=== PATIENT | female | born 1990 | race Asian ===

== ENCOUNTER 2017-09-02 21:41 | Emergency (ER) | payer MEDICAID ==
[~2017-09-02] VITALS: Ht 154.9 cm; Wt 57.0 kg
[2017-09-02] MEDS ORDERED: IPRATROPIUM BROMIDE 0.5 MG/2.5 ML NEB SOLUTION NEB ONE (22:15)
[2017-09-02] MEDS ORDERED: ALBUTEROL SULFATE 2.5 MG/0.5 ML NEB SOLUTION NEB ONE ×2 (22:15→23:45)
[2017-09-02] MEDS ORDERED: PROMETHAZINE HCL/CODEINE 6.25-10MG/5ML SYRUP UDCUP PO ONE (23:45)
[2017-09-02] MEDS ORDERED: DEXAMETHASONE SOD PHOS 4 MG/ML 5 ML VIAL IM ONE (23:45)
[2017-09-02] MEDS ORDERED: 0.9% SODIUM CHLORIDE 5 ML NEB SOLUTION NEB ONE (23:45)
[2017-09-03] MEDS ORDERED: IPRATROPIUM BROMIDE 0.5 MG/2.5 ML NEB SOLUTION NEB ONE (01:00)
[2017-09-03] MEDS ORDERED: ALBUTEROL SULFATE 2.5 MG/0.5 ML NEB SOLUTION NEB ONE (01:00)
[2017-09-03 01:52] VITALS: BP 111/69
== END 2017-09-03 01:54 | disposition home or self-care (01) ==
LOC: EMS 21:41
DX: J20.9 Acute bronchitis, unspecified (principal); Z87.891 Personal history of nicotine dependence
CPT/HCPCS: 71045; 94640 ×2; 96372; 99285; J1100; J7613 ×2